=== PATIENT | female | born 1950 | race Caucasian/White ===

== ENCOUNTER 2017-03-28 08:45 | Emergency (ER) | payer MEDICARE, OTHER ==
[2017-03-28 09:12] VITALS: BP 135/69; O2SAT 96
--- NOTE | 2017-03-28 09:35 | ERPHSYRPT ---
- History of Present Illness Time Seen by Provider: 03/28/17 09:29 Exam Limitations: no limitations Patient Subjective Stated Complaint: while making bed this am noticed a bruise on right wrist. does not remember hitting wrist on anything. Triage Nursing Assessment: ambulated to room per self without difficulty. skin w/d, color normal. large hematoma to right wrist. tender to touch. pulse good , hand warm and normal color. Physician History: The patient is a right-handed 66-year-old female with her complaining of pain in her right wrist that began suddenly while she was making the bed this morning. She was pulling on that sheet and felt a sudden pop in her right wrist and has noticed a large bruise/hematoma on her wrist. This is now tender and swollen. She doesn't take any blood thinners. She's never had any bleeding or clotting problems in the past. Her past medical history significant only for high cholesterol and a hysterectomy. Occurred: just prior to arrival Method of Injury: other (making the bed) Quality: sharpness Severity of Pain-Max: mild Severity of Pain-Current: mild Extremities Pain Location: wrist: right Modifying Factors: Improves With: nothing Associated Symptoms: none Allergies/Adverse Reactions: Sulfa (Sulfonamide Antibiotics) Allergy (Verified 03/28/17 09:01) codeine Adverse Reaction (Verified 03/28/17 09:01) Home Medications: Atorvastatin Calcium [Lipitor] 10 mg PO HS 03/28/17 [History] Zinc 50 mg PO HS 03/28/17 [History] Hx Tetanus, Diphtheria Vaccination/Date Given: No Hx Influenza Vaccination/Date Given: No Hx Pneumococcal Vaccination/Date Given: No - Review of Systems Constitutional: No Fever, No Chills Eyes: No Symptoms Ears, Nose, & Throat: No Symptoms Respiratory: No Cough, No Dyspnea Cardiac: No Chest Pain, No Edema, No Syncope Abdominal/Gastrointestinal: No Abdominal Pain, No Nausea, No Vomiting, No Diarrhea Genitourinary Symptoms: No Dysuria Musculoskeletal: No Back Pain, No Neck Pain Skin: Other (bruise/hematoma) Neurological: No Dizziness, No Focal Weakness, No Sensory Changes Psychological: No Symptoms Endocrine: No Symptoms Hematologic/Lymphatic: No Blood Clots, No Easy Bleeding, No Easy Bruising Immunological/Allergic: No Symptoms All Other Systems: Reviewed and Negative - Past Medical History Pertinent Past Medical History: Yes Cardiac History: High Cholesterol Musculoskeletal History: Fibromyalgia - Past Surgical History Past Surgical History: Yes Female Surgical History: Hysterectomy - Social History Smoking Status: Never smoker Exposure to second hand smoke: No Drug Use: none Patient Lives Alone: No - Nursing Vital Signs Nursing Vital Signs: Initial Vital Signs Temperature 99.3 F Temperature Source Oral Pulse Rate 70 Respiratory Rate 18 Blood Pressure [Left Arm] 135/69 Pain Intensity 4 - Physical Exam General Appearance: alert Eyes, Ears, Nose, Throat Exam: moist mucous membranes Neck Exam: non-tender, supple Cardiovascular/Respiratory Exam: chest non-tender, normal breath sounds, regular rate/rhythm, no respiratory distress Abdominal Exam: non-tender, No guarding Back Exam: normal inspection, No vertebral tenderness Shoulder Exam: normal inspection Elbow/Forearm Exam: normal inspection Wrist Exam: ecchymosis (Examination of the right wrist reveals a large hematoma over the palmar side of the wrist. This hematoma has produced mild swelling and tenderness. The patient moves the wrist without difficulty.) Hand Exam: normal inspection Neuro/Tendon Exam: normal sensation, normal motor functions Mental Status Exam: alert, oriented x 3, cooperative Skin Exam: normal color, warm, dry SpO2 Interpretation: normal SpO2: 96 Oxygen Delivery: Room Air Ordered Tests: Active Orders 24 hr Category Date Time Status BMP Stat Lab 03/28/17 09:48 Completed CBC W DIFF Stat Lab 03/28/17 09:48 Completed PROTIME WITH INR Stat Lab 03/28/17 09:48 Completed PTT Stat Lab 03/28/17 09:48 Completed Lab/Rad Data: Laboratory Result [facility] 03/28/17 09:48 03/28/17 09:48 Laboratory Results 03/28/17 03/28/17 03/28/17 Range/Units 09:48 09:48 09:48 WBC 5.7 (4.0-10.5) K/mm3 RBC 4.10 (4.1-5.4) M/mm3 Hgb 12.4 (12.0-16.0) gm/dl Hct 38.9 (35-47) % MCV 94.9 (78-100) fl MCH 30.2 (26-32) pg MCHC 31.9 L (32-36) g/dl RDW 13.5 (11.5-14.0) % Plt Count 227 (150-450) K/mm3 MPV 10.3 H (6-9.5) fl Gran % 57.9 (36.0-66.0) % Lymphocytes % 29.3 (24.0-44.0) % Monocytes % 9.9 (0.0-12.0) % Eosinophils % 2.5 (0.00-5.0) % Basophils % 0.4 (0.0-0.4) % Basophils # 0.02 (0-0.4) INR 0.97 (0.8-3.0) APTT 33.2 (25.3-37.0) SECONDS Sodium 143 (136-145) mEq/L Potassium 4.4 (3.5-5.1) mEq/L Chloride 109 H (98-107) mEq/L Carbon Dioxide 26.6 (21-32) mEq/L Anion Gap 12.2 (5-15) MEQ/L BUN 19 (9-20) mg/dL Creatinine 0.97 (0.55-1.30) mg/dl Estimated GFR > 60 ML/MIN Glucose 97 (70-110) MG/DL Calcium 9.3 (8.5-10.1) mg/dL - Progress Progress: unchanged Counseled pt/family regarding: lab results, diagnosis - Departure Time of Disposition: 10:24 Departure Disposition: Home Clinical Impression: Hematoma Condition: Stable Critical Care Time: No Additional Instructions: You have a hematoma on your right wrist. All laboratory tests were within normal limits. Apply ice to the area today as needed. If condition worsens, please return to the ER or follow-up with your family physician.
[2017-03-28 09:54] LABS: BASOPHIL % 0.4 % (0.0-0.4); Eosinophil % 2.5 % (0.00-5.0); Granulocytes % 57.9 % (36.0-66.0); Lymphocytes % 29.3 % (24.0-44.0); Mean Cell Volume 94.9 fl (78-100); Mean Corpuscular Hemoglobin 30.2 pg (26-32); Mean Platelet Volume 10.3 fl (6-9.5); Monocytes % 9.9 % (0.0-12.0); Platelet Count 227 K/mm3 (150-450); Red Cell Distribution Width 13.5 % (11.5-14.0); White Blood Count 5.7 K/mm3 (4.0-10.5)
[2017-03-28 10:03] VITALS: PULSE 70
[2017-03-28 10:04] LABS: INR 0.97 (0.8-3.0); PROTIME 10.9 SECONDS (9.95-12.35)
[2017-03-28 10:07] LABS: PTT 33.2 SECONDS (25.3-37.0)
[2017-03-28 10:08] LABS: ANION GAP 12.2 MEQ/L (5-15); BLOOD UREA NITROGEN 19 mg/dL (9-20); CHLORIDE 109 mEq/L (98-107); Carbon Dioxide 26.6 mEq/L (21-32); Glucose 97 MG/DL (70-110); Potassium 4.4 mEq/L (3.5-5.1); SODIUM 143 mEq/L (136-145)
== END 2017-03-28 10:35 | disposition home or self-care (01) ==
LOC: ED 08:45
DX: T14.8 Other injury of unspecified body region (principal)
CPT/HCPCS: 36415; 80048; 85025; 85610; 85730; 99283

== ENCOUNTER 2021-10-02 17:41 | Emergency (ER) | payer MEDICARE, OTHER ==
[2021-10-02 18:37] LABS: Absolute Neutrophil Ct (ANC) 3.76 (1.4-6.9); BASOPHIL % 0.6 % (0.0-0.4); Basophil (Absolute #) 0.04 (0-0.4); Eosinophil % 3.2 % (0.00-5.0); Eosinophil (Absolute #) 0.22 (0-0.5); Hematocrit 39.7 % (35-47); Hemoglobin 12.5 gm/dl (12.0-16.0); Lymphocytes % 28.9 % (24.0-44.0); Mean Cell Volume 96.1 fl (78-100); Mean Corpuscular Hemoglobin 30.3 pg (26-32); Mean Corpuscular Hgb Concent. 31.5 g/dl (32-36); Mean Platelet Volume 10.2 fl (7.5-11.0); Monocyte (Absolute #) 0.89 (0.0-1.3); Monocytes % 12.9 % (0.0-12.0); Neutrophil % 54.4 % (36.0-66.0); Platelet Count 228 K/mm3 (150-450); Red Blood Count 4.13 M/mm3 (4.1-5.4); Red Cell Distribution Width 13.1 % (11.5-14.0); White Blood Count 6.9 K/mm3 (4.0-10.5)
[2021-10-02 18:39] LABS: Appearance CLEAR (CLEAR); Bilirubin NEGATIVE (NEGATIVE); Blood SMALL Ery/ul (0-5); Glucose NEGATIVE (NEGATIVE); Ketones NEGATIVE (NEGATIVE); Leukocyte Esterase TRACE (NEGATIVE); Nitrite NEGATIVE (NEGATIVE); Protein,Urine Dip NEGATIVE (Negative); Specific Gravity 1.014 (1.005-1.025); Urobilinogen NEGATIVE mg/dL (0-1)
[2021-10-02 19:14] LABS: ALBUMIN 3.8 g/dL (3.5-5.0); ALKALINE PHOSPHATASE 77 U/L (38-126); ANION GAP 9.6 MEQ/L (5-15); BLOOD UREA NITROGEN 22 mg/dL (7-17); CHLORIDE 107 mmol/L (98-107); Calcium 9.3 mg/dL (8.4-10.2); Carbon Dioxide 26 mmol/L (22-30); Creatinine 1 0.85 mg/dL (0.52-1.04); EST GLOMERULAR FILTRATION RATE > 60.0 ML/MIN; Glucose 103 mg/dL (74-106); MAGNESIUM 2.2 mg/dL (1.6-2.3); NT PRO BNP 114 pg/mL (0-900); Potassium 4.1 mmol/L (3.5-5.1); SGOT/AST 27 U/L (14-36); SGPT/ALT 24 U/L (0-35); SODIUM 138 mmol/L (137-145); Total Protein 6.4 g/dL (6.3-8.2)
--- NOTE | 2021-10-02 20:29 | ERPHSYRPT ---
- History of Present Illness Time Seen by Provider: 10/02/21 18:00 Source: patient Exam Limitations: no limitations Patient Subjective Stated Complaint: PT HERE FOR WEAKNESS SUDDEN ONSET TODAY, SHE ASLO STATES ALL DAY SHE HAS BEEN HAVING SHOOTING PAIN UP NECK AND DOWN LEFT ARM, STATES PAIN COMES AND GOES,NO INJURY Triage Nursing Assessment: PT ALERT, RESP EASY, SKIN W/D/P. FACE MASK IN PLACE, ABLE TO UNDRESS SELF AND WALKED TO BED, NO EDEMA NOTED Physician History: Patient is a 71-year-old female presents to our ED with complaints of sudden onset generalized weakness. Patient states she was at home when her symptoms started. Patient then felt pain in her neck and into her left arm. Patient thought she was having a heart attack and came to our emergency department. Upon arrival to our ED patient symptoms had improved. Patient states her symptoms have been intermittent throughout the day. Symptoms are mild to moderate in intensity. Exertion worsens symptoms. Pain improved with rest. No associated nausea vomiting or diaphoresis. Patient states she has had the symptoms in the past but were more intense today. Patient voices no other complaints or concerns at this time. Timing/Duration: today Severity: moderate Modifying Factors: Improves With: movement Associated Symptoms: denies symptoms Allergies/Adverse Reactions: Sulfa (Sulfonamide Antibiotics) Allergy (Verified 10/02/21 18:01) codeine Adverse Reaction (Verified 10/02/21 18:01) Home Medications: Atorvastatin Calcium [Lipitor] 10 mg PO HS 03/28/17 [History] Zinc 50 mg PO HS 03/28/17 [History] Hx Tetanus, Diphtheria Vaccination/Date Given: No Hx Influenza Vaccination/Date Given: No Hx Pneumococcal Vaccination/Date Given: No Immunizations Up to Date: Yes Travel Risk - International Travel Have you traveled outside of the country in past 3 weeks: No - Coronavirus Screening Are you exhibiting any of the following symptoms?: No Close contact with a COVID-19 positive Pt in past 14-21 Days: No - Vaccine Status Have you recieved a Covid-19 vaccination: No - Review of Systems Constitutional: No Symptoms, No Fever, No Chills Eyes: No Symptoms Ears, Nose, & Throat: No Symptoms Respiratory: No Symptoms, No Cough, No Dyspnea Cardiac: No Symptoms, No Chest Pain, No Edema, No Syncope Abdominal/Gastrointestinal: No Symptoms, No Abdominal Pain, No Nausea, No Vomiting, No Diarrhea Genitourinary Symptoms: No Symptoms, No Dysuria Musculoskeletal: No Symptoms, No Back Pain, No Neck Pain Skin: No Symptoms, No Rash Neurological: No Symptoms, No Dizziness, No Focal Weakness, No Sensory Changes Psychological: No Symptoms Endocrine: No Symptoms Hematologic/Lymphatic: No Symptoms Immunological/Allergic: No Symptoms All Other Systems: Reviewed and Negative - Past Medical History Pertinent Past Medical History: Yes Cardiac History: High Cholesterol Musculoskeletal History: Fibromyalgia - Past Surgical History Past Surgical History: Yes Female Surgical History: Hysterectomy - Social History Smoking Status: Never smoker Exposure to second hand smoke: No Drug Use: none Patient Lives Alone: No - Female History Hx Last Menstrual Period: POST Hx Now: No - Nursing Vital Signs Nursing Vital Signs: Initial Vital Signs Temperature 96.8 F 10/02/21 17:54 Pulse Rate 60 10/02/21 17:54 Respiratory Rate 96 H 10/02/21 17:54 Blood Pressure 182/93 10/02/21 17:54 O2 Sat by Pulse Oximetry 99 10/02/21 17:54 Pain Scale Pain Intensity 4 - Physical Exam General Appearance: no apparent distress, alert Eye Exam: PERRL/EOMI, eyes nml inspection Ears, Nose, Throat Exam: normal ENT inspection, TMs normal, pharynx normal, moist mucous membranes Neck Exam: normal inspection, non-tender, supple, full range of motion Respiratory Exam: normal breath sounds, lungs clear, airway intact, No respiratory distress Cardiovascular Exam: regular rate/rhythm, normal heart sounds, normal peripheral pulses Gastrointestinal/Abdomen Exam: soft, normal bowel sounds, No tenderness, No mass Back Exam: normal inspection, normal range of motion, No CVA tenderness, No vertebral tenderness Extremity Exam: normal inspection, normal range of motion, pelvis stable Neurologic Exam: alert, oriented x 3, cooperative, normal mood/affect, nml cerebellar function, nml station & gait, sensation nml, No motor deficits Skin Exam: normal color, warm, dry, No rash Lymphatic Exam: No adenopathy SpO2 Interpretation: normal SpO2: 100 O2 Delivery: Room Air - Course Nursing assessment & vital signs reviewed: Yes EKG Interpreted by Me: RATE (53), Sinus Rhythm, NORMAL AXIS, NORMAL INTERVALS Ordered Tests: Active Orders 24 hr Category Date Time Status AMA [Release AMA] OM.NOW Care 10/02/21 20:30 Ordered Sheet Heater Helper STAT Care 10/02/21 18:11 Active EKG-ER Only STAT Care 10/02/21 18:10 Active IV Insertion STAT Care 10/02/21 18:10 Active Pulse Oximetry (ED) STAT Care 10/02/21 18:10 Active CBC W DIFF Stat Lab 10/02/21 18:26 Completed CMP Stat Lab 10/02/21 18:26 Completed MAGNESIUM Stat Lab 10/02/21 18:26 Completed NT PRO BNP Stat Lab 10/02/21 18:26 Completed POCT GLUCOSE Stat Lab 10/02/21 18:12 Completed TROPONIN Q3H Lab 10/02/21 18:26 Completed TROPONIN Q3H Lab 10/02/21 21:15 Ordered TROPONIN Q3H Lab 10/03/21 00:15 Ordered TROPONIN Q3H Lab 10/03/21 03:15 Ordered TROPONIN Q3H Lab 10/03/21 06:15 Ordered UA W/RFX UR CULTURE Stat Lab 10/02/21 18:14 Completed Lab/Rad Data: Laboratory Result Diagrams 10/02/21 18:26 10/02/21 18:26 Laboratory Results 10/02/21 10/02/21 10/02/21 Range/Units 18:26 18:26 18:26 WBC 6.9 (4.0-10.5) K/mm3 RBC 4.13 (4.1-5.4) M/mm3 Hgb 12.5 (12.0-16.0) gm/dl Hct 39.7 (35-47) % MCV 96.1 (78-100) fl MCH 30.3 (26-32) pg MCHC 31.5 L (32-36) g/dl RDW 13.1 (11.5-14.0) % Plt Count 228 (150-450) K/mm3 MPV 10.2 (7.5-11.0) fl Gran % 54.4 (36.0-66.0) % Eos # (Auto) 0.22 (0-0.5) Absolute Lymphs (auto) 2.00 (1.0-4.6) Absolute Monos (auto) 0.89 (0.0-1.3) Lymphocytes % 28.9 (24.0-44.0) % Monocytes % 12.9 H (0.0-12.0) % Eosinophils % 3.2 (0.00-5.0) % Basophils % 0.6 (0.0-0.4) % Absolute Granulocytes 3.76 (1.4-6.9) Basophils # 0.04 (0-0.4) Sodium 138 (137-145) mmol/L Potassium 4.1 (3.5-5.1) mmol/L Chloride 107 (98-107) mmol/L Carbon Dioxide 26 (22-30) mmol/L Anion Gap 9.6 (5-15) MEQ/L BUN 22 H (7-17) mg/dL Creatinine 0.85 (0.52-1.04) mg/dL Estimated GFR > 60.0 ML/MIN Glucose 103 (74-106) mg/dL POC Glucometer (74 to 106) mg/dL Calcium 9.3 (8.4-10.2) mg/dL Magnesium 2.2 (1.6-2.3) mg/dL Total Bilirubin 0.40 (0.2-1.3) mg/dL AST 27 (14-36) U/L ALT 24 (0-35) U/L Alkaline Phosphatase 77 (38-126) U/L Troponin I < 0.012 (0.000-0.034) ng/mL NT-Pro-B Natriuret Pep 114 (0-900) pg/mL Serum Total Protein 6.4 (6.3-8.2) g/dL Albumin 3.8 (3.5-5.0) g/dL Urine Color (YELLOW) Urine Appearance (CLEAR) Urine pH (5-6) Ur Specific [place] (1.005-1.025) Urine Protein (Negative) Urine Ketones (NEGATIVE) Urine Blood (0-5) Harshil/ul Urine Nitrite (NEGATIVE) Urine Bilirubin (NEGATIVE) Urine Urobilinogen (0-1) mg/dL Ur Leukocyte Esterase (NEGATIVE) Urine WBC (Auto) (0-5) /HPF Urine RBC (Auto) (0-2) /HPF U Epithel Cells (Auto) (FEW) /HPF Urine Bacteria (Auto) (NEGATIVE) /HPF Urine Culture Reflexed (NO) Urine Glucose (NEGATIVE) mg/dL 10/02/21 10/02/21 Range/Units 18:14 18:12 WBC (4.0-10.5) K/mm3 RBC (4.1-5.4) M/mm3 Hgb (12.0-16.0) gm/dl Hct (35-47) % MCV (78-100) fl MCH (26-32) pg MCHC (32-36) g/dl RDW (11.5-14.0) % Plt Count (150-450) K/mm3 MPV (7.5-11.0) fl Gran % (36.0-66.0) % Eos # (Auto) (0-0.5) Absolute Lymphs (auto) (1.0-4.6) Absolute Monos (auto) (0.0-1.3) Lymphocytes % (24.0-44.0) % Monocytes % (0.0-12.0) % Eosinophils % (0.00-5.0) % Basophils % (0.0-0.4) % Absolute Granulocytes (1.4-6.9) Basophils # (0-0.4) Sodium (137-145) mmol/L Potassium (3.5-5.1) mmol/L Chloride (98-107) mmol/L Carbon Dioxide (22-30) mmol/L Anion Gap (5-15) MEQ/L BUN (7-17) mg/dL Creatinine (0.52-1.04) mg/dL Estimated GFR ML/MIN Glucose (74-106) mg/dL POC Glucometer 90 (74 to 106) mg/dL Calcium (8.4-10.2) mg/dL Magnesium (1.6-2.3) mg/dL Total Bilirubin (0.2-1.3) mg/dL AST (14-36) U/L ALT (0-35) U/L Alkaline Phosphatase (38-126) U/L Troponin I (0.000-0.034) ng/mL NT-Pro-B Natriuret Pep (0-900) pg/mL Serum Total Protein (6.3-8.2) g/dL Albumin (3.5-5.0) g/dL Urine Color STRAW (YELLOW) Urine Appearance CLEAR (CLEAR) Urine pH 5.0 (5-6) Ur Specific [place] 1.014 (1.005-1.025) Urine Protein NEGATIVE (Negative) Urine Ketones NEGATIVE (NEGATIVE) Urine Blood SMALL (0-5) Harshil/ul Urine Nitrite NEGATIVE (NEGATIVE) Urine Bilirubin NEGATIVE (NEGATIVE) Urine Urobilinogen NEGATIVE (0-1) mg/dL Ur Leukocyte Esterase TRACE (NEGATIVE) Urine WBC (Auto) 3-5 (0-5) /HPF Urine RBC (Auto) NONE (0-2) /HPF U Epithel Cells (Auto) NONE (FEW) /HPF Urine Bacteria (Auto) NONE (NEGATIVE) /HPF Urine Culture Reflexed NO (NO) Urine Glucose NEGATIVE (NEGATIVE) mg/dL - Progress Progress: improved Progress Note: Patient reassessed. She is asymptomatic. Preliminary work-up negative. In light of patient's age and symptoms we are concerned for acute coronary syndrome. We advised hospitalization for serial cardiac enzymes and rule out. Patient declined. Patient states that she feels well and wants to go home. Patient is of sound mind. Patient is appropriate to make informed and independent medical decisions. Patient understands that leaving AGAINST MEDICAL ADVICE can result in delayed diagnosis, increased risk of morbidity, mortality, short and long-term disability including . In spite of these risks, patient has decided to leave AGAINST MEDICAL ADVICE. Patient understands that she may return to our ED at any point if she reconsiders. Patient agrees to follow-up with her primary care doctor within 48 hours for reevaluation. Patient voices no other complaints or concerns at this time. We will release patient AGAINST MEDICAL ADVICE per their request. 10/02/21 20:27 Portions of this note were created with voice recognition technology. There may be grammatical, spelling, punctuation or sound alike errors Counseled pt/family regarding: lab results, diagnosis, need for follow-up - Departure Departure Disposition: AMA Clinical Impression: ACS (acute coronary syndrome) Condition: Stable Critical Care Time: No Referrals: [facility] [Primary Care Provider] - Follow up/PCP as directed Additional Instructions: Discharge/Care Plan DONNA SPRING was seen on 10/02/21 in the Emergency Room. The patient was counseled regarding Diagnosis,Lab results, Imaging studies, need for follow up and when to return to the Emergency Room. Prescriptions given: Discharge Note I have spoken with the patient and/or caregivers. I have explained the patient's condition, diagnosis and treatment plan based on the information available to me at this time. I have answered the patient's and/or caregiver's questions and addressed any concerns. The patient and/or caregivers have as good understanding of the patient's diagnosis, condition and treatment plan as can be expected at this point. The vital signs have been stable. The patient's condition is stable and appropriate for discharge from the emergency department. The patient will pursue further outpatient evaluation with the primary care physician or other designated or consulting physician as outlined in the discharge instructions. The patient and/or caregivers are agreeable to this plan of care and follow-up instructions have been explained in detail. The patient and/or caregivers have received these instruction. The patient/and or caregivers are aware that any significant change in condition or worsening of symptoms should prompt an immediate return to this or the closest emergency department or call 911.
[2021-10-02 20:37] VITALS: BP 145/79; PULSE 64; O2SAT 98
== END 2021-10-02 20:46 | disposition left against medical advice (07) ==
LOC: ED 17:41
DX: I24.9 Acute ischemic heart disease, unspecified (principal); M54.2 Cervicalgia; M79.602 Pain in left arm; E78.5 Hyperlipidemia, unspecified
CPT/HCPCS: 36000; 36415; 80053; 81001; 82947; 83735; 83880; 84484; 85025; 93005; 93041; 94760; 99284

== ENCOUNTER 2021-10-03 15:22 | Emergency (ER) | payer MEDICARE, OTHER ==
[2021-10-03] MEDS ORDERED: BABY ASPIRIN 81 MG CHEW PO ONE (15:36)
[2021-10-03] MEDS ORDERED: BABY ASPIRIN 81 MG CHEW ONE (15:45)
--- NOTE | 2021-10-03 15:48 | ERPHSYRPT ---
- History of Present Illness Historian: patient Exam Limitations: no limitations Patient Subjective Stated Complaint: chest pain/discomfort for 2 days, pt was in this ER last night and everything was clear and she followed up with Dr. Ramos today and wanted to direct admit her but she had to come to the ER to have another work up done Triage Nursing Assessment: Pt brought to the ER by her , hypertensive, rates pain as 4/10, pain less today than yesterday, pulses normal, skin n/w/d, no difficulties with breathing, doesn't appear to be in any distress Physician History: 71 yo wf w sub-sternal chest pain x 2 days. Pt seen and released yesterday from ER. Pain is 4/10 but has been up to 10/10. She was sent from PCP's office to be admitted. Pain does not radiate today but went up back of neck yesterday. She has had nausea/dypnea/diaphoresis wo vomiting. Pt has a h/o hyperlipidemia but denies HTN/DM/Tobacco use/hx of CAD. Cough/fever denied. Timing/Duration: other (2 days) Quality: pressure, tightness Location: substernal Chest Pain Radiation: no radiation Severity of Pain-Max: moderate Severity of Pain-Current: mild Modifying Factors: Improves With: nothing Associated Symptoms: nausea, shortness of breath, No vomiting, No palpitations, No heartburn, No abdominal pain, No cough, No hurts to breathe, No diaphoresis, No chills, No fever, No fatigue, No weakness, No swelling/lump in chest, No syncope, No rash, No headache, No dizziness, No edema, No back pain Prior Chest Pain/Cardiac Workup: recently seen/treated (ER visit yesterday) Nitro Today/Relief: no nitro taken today Aspirin Treatment Today: no aspirin today Allergies/Adverse Reactions: Sulfa (Sulfonamide Antibiotics) Allergy (Verified 10/03/21 15:45) codeine Adverse Reaction (Verified 10/03/21 15:45) Home Medications: Atorvastatin Calcium [Lipitor] 10 mg PO HS 03/28/17 [History] Zinc 50 mg PO HS 03/28/17 [History] Hx Tetanus, Diphtheria Vaccination/Date Given: No Hx Influenza Vaccination/Date Given: No Hx Pneumococcal Vaccination/Date Given: No Immunizations Up to Date: No Travel Risk - International Travel Have you traveled outside of the country in past 3 weeks: No - Coronavirus Screening Are you exhibiting any of the following symptoms?: No Close contact with a COVID-19 positive Pt in past 14-21 Days: No - Vaccine Status Have you recieved a Covid-19 vaccination: No - Review of Systems Constitutional: No Symptoms Eyes: No Symptoms Ears, Nose, & Throat: No Symptoms Respiratory: No Symptoms, Dyspnea Cardiac: No Symptoms, Chest Pain Abdominal/Gastrointestinal: No Symptoms, Nausea Genitourinary Symptoms: No Symptoms Musculoskeletal: No Symptoms Skin: No Symptoms Neurological: No Symptoms Psychological: No Symptoms Endocrine: No Symptoms Hematologic/Lymphatic: No Symptoms Immunological/Allergic: No Symptoms - Past Medical History Pertinent Past Medical History: Yes Neurological History: No Pertinent History ENT History: No Pertinent History Cardiac History: High Cholesterol Respiratory History: No Pertinent History Endocrine Medical History: No Pertinent History Musculoskeletal History: Fibromyalgia GI Medical History: No Pertinent History History: No Pertinent History Psycho-Social History: No Pertinent History Female Reproductive Disorders: No Pertinent History - Past Surgical History Past Surgical History: Yes Female Surgical History: Hysterectomy, Tubal Ligation - Social History Smoking Status: Never smoker Exposure to second hand smoke: No Drug Use: none Patient Lives Alone: No - Nursing Vital Signs Nursing Vital Signs: Initial Vital Signs Temperature 97.5 F 10/03/21 15:27 Pulse Rate 61 10/03/21 15:27 Respiratory Rate 19 10/03/21 15:27 Blood Pressure 171/91 10/03/21 15:27 O2 Sat by Pulse Oximetry 99 10/03/21 15:27 Pain Scale Pain Intensity 4 Hypertensive - Physical Exam General Appearance: no apparent distress Eye Exam: PERRL/EOMI, eyes nml inspection Ears, Nose, Throat Exam: normal ENT inspection, TMs normal, pharynx normal, moist mucous membranes Neck Exam: normal inspection, non-tender, supple, full range of motion, No m eningismus, No mass, No Brudzinski, No Kernig's, No carotid bruit Respiratory Exam: normal breath sounds, lungs clear, airway intact Cardiovascular Exam: regular rate/rhythm, normal heart sounds, No murmur Gastrointestinal/Abdomen Exam: soft, normal bowel sounds, No tenderness Back Exam: normal inspection, normal range of motion, No CVA tenderness, No vertebral tenderness Extremity Exam: normal inspection, normal range of motion Neurologic Exam: alert, oriented x 3, cooperative, 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, normal mood/affect, nml cerebellar function, nml station & gait, sensation nml Skin Exam: normal color Lymphatic Exam: No adenopathy SpO2 Interpretation: normal SpO2: 99 O2 Delivery: Room Air - Course EKG Interpreted by Me: RATE (Sinus joceline/Rate 56/normal QT-QTc/Low voltage/No acute ST segment changes) - Radiology Exams Chest X-ray Interpretation: Discussed w/ radiologist (NAD) - CT Exams Chest CT Interpretation: Discussed w/radiologist (CTA chest-no PE or AD) Ordered Tests: Active Orders 24 hr Category Date Time Status [facility] [employer] STAT Care 10/03/21 15:30 Completed EKG-ER Only STAT Care 10/03/21 15:30 Completed IV Insertion STAT Care 10/03/21 15:30 Completed CHEST 1 VIEW (PORTABLE) Stat Exams 10/03/21 15:30 Completed CTA CHEST W AND/OR WO [CT] Stat Exams 10/03/21 15:49 Completed CBC W DIFF Stat Lab 10/03/21 15:30 Completed CMP Stat Lab 10/03/21 15:45 Completed D-DIMER QUANTITATIVE Stat Lab 10/03/21 15:45 Completed NT PRO BNP Stat Lab 10/03/21 15:45 Completed PROTIME WITH INR Stat Lab 10/03/21 15:45 Completed PTT Stat Lab 10/03/21 15:45 Completed TROPONIN Q3H Lab 10/03/21 15:45 Completed Medication Summary Discontinued Medications Generic Name Dose Route Start Last Admin Trade Name Freq PRN Reason Stop Dose Admin Aspirin 324 mg 10/03/21 15:36 10/03/21 15:47 Aspirin 81 Mg Tab.Chew PO 10/03/21 15:37 324 mg STAT ONE Administration Aspirin Confirm 10/03/21 15:45 Aspirin 81 Mg Tab.Chew Administered 10/03/21 15:46 Dose 324 mg .ROUTE .STK-MED ONE Lab/Rad Data: Laboratory Result Diagrams 10/03/21 15:30 10/03/21 15:45 Laboratory Results 10/03/21 10/03/21 10/03/21 Range/Units 15:45 15:45 15:45 WBC (4.0-10.5) K/mm3 RBC (4.1-5.4) M/mm3 Hgb (12.0-16.0) gm/dl Hct (35-47) % MCV (78-100) fl MCH (26-32) pg MCHC (32-36) g/dl RDW (11.5-14.0) % Plt Count (150-450) K/mm3 MPV (7.5-11.0) fl Gran % (36.0-66.0) % Eos # (Auto) (0-0.5) Absolute Lymphs (auto) (1.0-4.6) Absolute Monos (auto) (0.0-1.3) Lymphocytes % (24.0-44.0) % Monocytes % (0.0-12.0) % Eosinophils % (0.00-5.0) % Basophils % (0.0-0.4) % Absolute Granulocytes (1.4-6.9) Basophils # (0-0.4) PT 11.0 (9.4-12.5) SECONDS INR 0.93 (0.8-3.0) APTT 30.8 (25.1-36.5) SECONDS D-Dimer 363 (215-500) ng/mL Sodium 141 (137-145) mmol/L Potassium 4.1 (3.5-5.1) mmol/L Chloride 108 H (98-107) mmol/L Carbon Dioxide 26 (22-30) mmol/L Anion Gap 11.2 (5-15) MEQ/L BUN 16 (7-17) mg/dL Creatinine 0.79 (0.52-1.04) mg/dL Estimated GFR > 60.0 ML/MIN Glucose 104 (74-106) mg/dL Calcium 9.5 (8.4-10.2) mg/dL Total Bilirubin 0.50 (0.2-1.3) mg/dL AST 26 (14-36) U/L ALT 25 (0-35) U/L Alkaline Phosphatase 79 (38-126) U/L Troponin I < 0.012 (0.000-0.034) ng/mL NT-Pro-B Natriuret Pep 159 (0-900) pg/mL Serum Total Protein 7.0 (6.3-8.2) g/dL Albumin 4.4 (3.5-5.0) g/dL 10/03/21 Range/Units 15:30 WBC 7.1 (4.0-10.5) K/mm3 RBC 4.61 (4.1-5.4) M/mm3 Hgb 14.0 (12.0-16.0) gm/dl Hct 44.0 (35-47) % MCV 95.4 (78-100) fl MCH 30.4 (26-32) pg MCHC 31.8 L (32-36) g/dl RDW 13.2 (11.5-14.0) % Plt Count 238 (150-450) K/mm3 MPV 10.5 (7.5-11.0) fl Gran % 54.8 (36.0-66.0) % Eos # (Auto) 0.21 (0-0.5) Absolute Lymphs (auto) 2.13 (1.0-4.6) Absolute Monos (auto) 0.83 (0.0-1.3) Lymphocytes % 30.1 (24.0-44.0) % Monocytes % 11.7 (0.0-12.0) % Eosinophils % 3.0 (0.00-5.0) % Basophils % 0.4 (0.0-0.4) % Absolute Granulocytes 3.87 (1.4-6.9) Basophils # 0.03 (0-0.4) PT (9.4-12.5) SECONDS INR (0.8-3.0) APTT (25.1-36.5) SECONDS D-Dimer (215-500) ng/mL Sodium (137-145) mmol/L Potassium (3.5-5.1) mmol/L Chloride (98-107) mmol/L Carbon Dioxide (22-30) mmol/L Anion Gap (5-15) MEQ/L BUN (7-17) mg/dL Creatinine (0.52-1.04) mg/dL Estimated GFR ML/MIN Glucose (74-106) mg/dL Calcium (8.4-10.2) mg/dL Total Bilirubin (0.2-1.3) mg/dL AST (14-36) U/L ALT (0-35) U/L Alkaline Phosphatase (38-126) U/L Troponin I (0.000-0.034) ng/mL NT-Pro-B Natriuret Pep (0-900) pg/mL Serum Total Protein (6.3-8.2) g/dL Albumin (3.5-5.0) g/dL - Progress Progress: improved Progress Note: 10/03/21 17:39 324 ASA po Heart Score3/Trop neg x2 within [address] Ramos x2, wants to send pt home w outpt stress test and ECHO which was set up 10/03/21 21:27 Counseled pt/family regarding: lab results, diagnosis, need for follow-up, rad results - Departure Departure Disposition: Home Clinical Impression: Chest pain Condition: Stable Critical Care Time: No Referrals: EMMANUEL [facility] [Primary Care Provider] - Follow up/PCP as directed Instructions: Chest Pain (DC) Additional Instructions: Stress Test 10/09/21 at 6:30AM ECHO 10/09/21 at 9:00AM Return to ER for worsening or sustained chest pain or increasing shortness of breath Take a regular Aspirin once a day(325mg) Nitroglycerin as needed Prescriptions: Nitroglycerin 0.4 mg Tablet [Nitrostat 0.4 MG Tablet] 0.4 mg SL Q5MIN PRN MR X 3 PRN #14 PRN Reason: Chest Pain
[2021-10-03 15:53] LABS: Absolute Neutrophil Ct (ANC) 3.87 (1.4-6.9); BASOPHIL % 0.4 % (0.0-0.4); Basophil (Absolute #) 0.03 (0-0.4); Eosinophil (Absolute #) 0.21 (0-0.5); Lymphocyte (Absolute #) 2.13 (1.0-4.6); Lymphocytes % 30.1 % (24.0-44.0); Mean Cell Volume 95.4 fl (78-100); Mean Corpuscular Hemoglobin 30.4 pg (26-32); Mean Corpuscular Hgb Concent. 31.8 g/dl (32-36); Mean Platelet Volume 10.5 fl (7.5-11.0); Monocyte (Absolute #) 0.83 (0.0-1.3); Monocytes % 11.7 % (0.0-12.0); Neutrophil % 54.8 % (36.0-66.0); Platelet Count 238 K/mm3 (150-450); Red Blood Count 4.61 M/mm3 (4.1-5.4); Red Cell Distribution Width 13.2 % (11.5-14.0); White Blood Count 7.1 K/mm3 (4.0-10.5)
--- NOTE | 2021-10-03 16:04 | XRAY ---
Exam: AP upright portable chest film from 10/03/2021. Comparison: None. Indication: 71-year-old female with chest pain; weakness. Findings: The heart size and contour are normal. The kristin and mediastinal structures appear unremarkable. The lungs are well inflated. No air space infiltrates, vascular congestion, pneumothorax, or pleural fluid is seen. No interstitial lung changes are seen. No acute osseous process is seen. EKG leads are noted in place. Impression: 1. No acute cardiopulmonary disease seen.
[2021-10-03 16:11] LABS: INR 0.93 (0.8-3.0)
[2021-10-03 16:14] LABS: PTT 30.8 SECONDS (25.1-36.5)
[2021-10-03 16:25] LABS: ALBUMIN 4.4 g/dL (3.5-5.0); ALKALINE PHOSPHATASE 79 U/L (38-126); ANION GAP 11.2 MEQ/L (5-15); BLOOD UREA NITROGEN 16 mg/dL (7-17); CHLORIDE 108 mmol/L (98-107); Calcium 9.5 mg/dL (8.4-10.2); Carbon Dioxide 26 mmol/L (22-30); Creatinine 1 0.79 mg/dL (0.52-1.04); EST GLOMERULAR FILTRATION RATE > 60.0 ML/MIN; Glucose 104 mg/dL (74-106); NT PRO BNP 159 pg/mL (0-900); Potassium 4.1 mmol/L (3.5-5.1); SGOT/AST 26 U/L (14-36); SGPT/ALT 25 U/L (0-35); SODIUM 141 mmol/L (137-145)
--- NOTE | 2021-10-03 17:35 | XRAY ---
Exam: CTA of the chest with IV contrast from 10/03/2021. Total exam DLP: 602.90 mGy-cm Comparison: AP upright portable chest film from 10/03/2021. Indication: 71-year-old female with chest pain, shortness of breath, and weakness for a couple days. Rule out PE/aortic dissection. Technique: Post-IV contrast axial images were obtained through the chest employing 100 cc of Isovue-370 contrast using the PE protocol. In addition, 3-D volume rendered images of the thoracic aorta were created at the CT workstation. Findings: The major lobar and segmental pulmonary arteries are well-opacified with contrast and reveal no filling defects to suggest pulmonary emboli. The heart size is normal without pericardial effusion. The thoracic aorta reveals some vascular calcification within the aortic arch. No thoracic aortic aneurysm or dissection is seen. The proximal portion of the major arteries arising from the aortic arch appear unremarkable. I believe there is some mild coronary artery vascular calcification within the LAD and circumflex artery on the left. Correlate clinically. No mediastinal mass or abnormal lymphadenopathy seen. The thyroid gland is only partially seen on this exam. The peripheral lungs reveals some minimal linear scarring/atelectasis at both posterior lung bases. No air space infiltrates, suspicious soft tissue lung nodularity, pneumothorax, or pleural fluid is seen. The trachea and major central branching bronchi appear open on the lung window images. The skeleton reveals no acute fracture or aggressive bone lesion. I do note mild/moderate mid and lower thoracic spondylosis. There is a prominent posterior bridging osteophyte at T8-T9 which mildly impinges upon the anterior aspect of the spinal canal at this level. See sagittal image #97 and thin axial images #61 through #74. Correlate clinically. Impression: 1. I see no evidence of acute pulmonary embolism. Neither do I see evidence of thoracic aortic aneurysm or thoracic aortic dissection. 2. Mild left coronary vascular calcification is seen. 3. No other acute cardiopulmonary process is seen. I do note some minimal linear scarring/plate atelectasis at both posterior lung bases. 4. There is a mild to moderate sized posterior bridging osteophyte at T8-T9 causing some mild compromise upon the anterior aspect of the spinal sac at this level. Correlate clinically. I also see evidence of mild multilevel degenerative disc disease within the mid and lower thoracic spine. A small Schmorl's node is seen within the superior vertebral endplate of both T10 and T11.
[2021-10-03 17:58] VITALS: BP 130/84; PULSE 76
[2021-10-03 21:29] VITALS: O2SAT 99
== END 2021-10-03 17:58 | disposition home or self-care (01) ==
LOC: ED 15:22
DX: R07.9 Chest pain, unspecified (principal); R11.0 Nausea; R06.02 Shortness of breath; E78.5 Hyperlipidemia, unspecified
CPT/HCPCS: 36000; 36415; 71045; 71275; 80053; 83880; 84484; 85025; 85379; 85610; 85730; 93005; 93041; 99284; A9270-GY